=== PATIENT | male | born 1950 ===

== ENCOUNTER 2023-04-21 10:42 | Outpatient (AMB) | payer MEDICARE, OTHER, SELFPAY ==
--- NOTE | 2023-04-21 11:00 | MHC.OFFWIV ---
Intake Vital Signs 04/21/23 11:16 Height 5 ft 11 in BP 130/60 Blood Pressure Location Lt brachial Position Sitting Pulse 85 Pulse Source Pulse Oximeter Temp 98.5 F Temp Source Temporal Artery Scan Pulse Oximetry (%) 95 Oxygen Delivery Method Room Air Intake Visit Reasons: EST/thiago sore throat body ache Intake Note: Pt is here c/o sore throat, body aches and chest congestion for the last four days. Patient Tobacco Use Status: Never used Tobacco Allergies No Known Allergies Allergy (Verified 04/21/23 11:14) Do you need a note to return to daycare/school/sports/work: No HPI HPI Comments History of Present Illness Details The patient presents to Urgent Care for evaluation of cough congestion mild sore throat times 3-4 days. Cough is keeping him up last night. No fever chills. No chest pain or shortness of breath. PFSH Social History Patient Tobacco Use Status: Never used Tobacco Review of Systems ENT Denies dizziness, Reports nasal congestion and Reports sore throat Card Denies rapid heart rate, Denies dyspnea and Denies dyspnea on exertion Resp Denies dyspnea and Denies dyspnea on exertion GI Denies dyspepsia and Denies heartburn Musc Denies arthralgias and Denies muscle cramps Neuro Denies dizziness, Denies focal weakness and Denies Other visual disturbances Physical Exam Vital Signs: Last Vital Signs Temp 98.5 F 04/21/23 11:16 Pulse 85 04/21/23 11:16 BP 130/60 04/21/23 11:16 Pulse Ox 95 04/21/23 11:16 Oxygen Delivery Method Room Air 04/21/23 11:16 Const General: healthy appearing and no acute distress HEENT Mouth: Normal oral and palatal mucosa present Chest Chest palpation & inspection: normal inspection of the chest Resp Effort & Inspection: normal respiratory effort and able to speak in complete sentences Auscultation: clear to auscultation bilaterally Cardio Rate: regular rate Rhythm: regular rhythm Results AMB Rapid Strep AMB Rapid Strep Negative Last Edit by Uma Vogt CMA on 04/21/23 11:25 Results Reviewed Results Reviewed: Laboratory Last Values Strep Scn [facility] Negative 04/21/23 11:24 Assessment & Plan Assessment & Plan (1) URI (upper respiratory infection): Code(s): J06.9 - Acute upper respiratory infection, unspecified Plan Symptoms consistent with viral URI no concerning features to suggest acute bacterial illness. Patient well appearing no distress. Recommend supportive care will give cough medicine for cough that has been keeping him up at night. Recommend to return if symptoms are worsening. Orders: Orders AMB Rapid Strep Screen Today Z13.9 - Encounter for screening, unspecified Medications: New codeine-guaifenesin 10-100 mg/5 mL 5 mL PO Q6H PRN 120 mL 0RF allergy symptoms Coding Level of Care Code Est Pt Level 3 (71510) Diagnoses URI (upper respiratory infection) J06.9
[2023-04-21 11:16] VITALS: BP 130/60; PULSE 85; TEMP 36.9; O2SAT 95
== END 2023-04-21 11:35 | disposition home or self-care (01) ==
PROVIDERS: Visit Provider Emergency Medicine
DX: J06.9 Acute upper respiratory infection, unspecified (principal)
CPT/HCPCS: 87880; 99213